=== PATIENT | male | born 1950 | race Caucasian/White ===

== ENCOUNTER → 2025-03-07 | Outpatient (REF) | payer OTHER ==
[~2025-03-07] MED LIST: IOPAMIDOL 370 MG/ML 100 ML INFUS..BTL INJ ONE; SODIUM CHLORIDE 0.9% 250ML 250 ML ONE; SODIUM CHLORIDE 0.9% 500ML 500 ML ONE
[2025-03-07 17:02] LABS: EST GLOMERULAR FILTRATION RATE 48.0 ML/MIN (>=60)
== END ==
LOC: CT 16:05
PROVIDERS: ATTEND Student in an Organized Health Care Education/Training Program
DX: Z01.89 Encounter for other specified special examinations (principal)
CPT/HCPCS: 36415; 74174; 82565; 84520; 96360; J7040; J7050; Q9967